=== PATIENT | female | born 1970 | race African-American/Black ===

== ENCOUNTER 2016-10-14 19:56 | Emergency (ER) | payer OTHER ==
[~2016-10-14] VITALS: Ht 149.9 cm; Wt 117.7 kg
[~2016-10-14 19:56] MED LIST: AMLODIPINE BESYL5 MG PO; CELEBREX200 MG PO; FIORICET 50-301 EACH PO; GLIMEPIRIDE4 MG PO; LASIX40 MG PO; LOSARTAN POTASS25 MG PO; LOVASTATIN10 MG PO; PROZAC40 MG PO; VITAMIN D250000 UNIT PO
[2016-10-15 00:33] VITALS: BP 181/85
== END 2016-10-15 00:34 | disposition home or self-care (01) ==
LOC: EME 19:56 → RME 19:56
DX: M79.89 Other specified soft tissue disorders (principal); M79.601 Pain in right arm; M79.661 Pain in right lower leg; I10 Essential (primary) hypertension
CPT/HCPCS: 93970; 93971; 99281; 99284

== ENCOUNTER → 2016-12-24 | Outpatient (CLI) | payer OTHER ==
[~2016-12-24] VITALS: Ht 149.9 cm; Wt 118.4 kg
[~2016-12-24] MED LIST changes: +INSULIN PUMP SCCONT; +VIVLODEX5 MG PO
[2016-12-24 12:41] LABS: POINT-OF-CARE METER ID UU14174212
== END | disposition home or self-care (01) ==
LOC: AMB 11:30
PROVIDERS: Internal Medicine Gastroenterology
PROC: 0DB68ZX Excision of Stomach, Via Natural or Artificial Opening Endoscopic, Diagnostic (ICD-10-PCS; principal; 2016-12-24)
DX: K29.70 Gastritis, unspecified, without bleeding (principal); I10 Essential (primary) hypertension; E11.9 Type 2 diabetes mellitus without complications; E66.01 Morbid (severe) obesity due to excess calories; Z68.43 Body mass index [BMI] 50.0-59.9, adult; E78.5 Hyperlipidemia, unspecified; J45.909 Unspecified asthma, uncomplicated; Z79.4 Long term (current) use of insulin; Z96.41 Presence of insulin pump (external) (internal); Z82.5 Family history of asthma and other chronic lower respiratory diseases; Z82.49 Family history of ischemic heart disease and other diseases of the circulatory system; Z83.3 Family history of diabetes mellitus
CPT/HCPCS: 82948; 88305; 88342 TC